=== PATIENT | female | born 1940 | race Caucasian/White ===

== ENCOUNTER → 2017-06-17 | Day surgery (SDC) | payer MEDICARE, BC ==
[~2017-06-17] MED LIST: ADVIL200 M1 PO; ALPRAZOLAM PO; ALPRAZOLAM1 M1 PO; ALPRAZOLAM1 MG PO; ANASTROZOLE1 MG PO; ASPIR-TRIN325 MG PO; B-12 SUBQ; BLOOD PRESSURE MED; CARAFATE1 G PO; CIPRO PO; CLONIDINE PO; EFFER-K 20 MEQ20 MEQ; FLAGYL PO; FLUOXETINE HCL20 M1 PO; FLUOXETINE HCL40 M1 PO; GAVISCON EXTRA; GAVISCON1 TAB PO; HYDROCODON-ACE1 EAC4; HYDROCODON-ACE1 EAC5 PO; IBUPROFEN PO; IBUPROFEN100 MG PO; IBUPROFEN200 M1 PO; K-DUR20 ME1 PO; KLOR-CON PO; LANSOPRAZOLE30 M1 PO; LANSOPRAZOLE30 M2 PO; LASIX PO; LASIX20 MG; LEVAQUIN PO; LIDODERM30 EA TOP; LISINOPRIL20 MG PO; LORATADINE PO; LORTAB 7.5-5001 TAB PO; MAXZIDE 75-501 EACH PO; MAXZIDE 75/50 T1 TA1 PO; MEDI-MECLIZINE25 M1 PO; METHADONE PO; METRONIDAZOLE PO; NEURONTIN300 MG PO; NEXIUM PO; OXYCODON HCL-1 UDTAB PO; OXYCODON HCL-AP1 TA2 PO; OXYCODONE-ACET1 EAC1 PO; OXYCODONE-APAP1 EAC5 PO; OXYCONTIN PO; PAMELOR PO; PERCOCET 10/3251 TAB PO; PERCOCET10 PO; PRAVACHOL PO; PREVACID PO; PREVACID15 M1 PO; PRILOSEC40 MG PO; PRINIVIL20 M1 PO; PROTONIX PO; PROZAC PO; PROZAC40 M1 PO; TOPROL XL 50 MG50 MG PO; TRIAMTERENE-HC1 EACH PO; TRIAMTERENE-HCT1 TA6 PO; VITAMIN B-1000 MCG/1 IJ; VITAMIN D400 UNI1 PO; XANAX0.5 MG PO; XANAX1 MG PO; ZANTAC300 MG PO; [UNRECOGNIZED DRUG - OTHER]
--- NOTE | ~2017-06-17 | OR ---
Unit #: [id number] #: [id number] Patient: NADEGE PINEDA [id number] [address] [place], [place] [address] [id number] O MR#: [id number] NAME: NADEGE PINEDA ROOM: Date of Procedure: 06/17/2017 Admission Date: 06/17/2017 Surgeon: Gary Aguero M.D. : 1940 Attending Physician: Gary Aguero M.D. Primary Care Physician: Darcie Hancock M.D. OPERATIVE REPORT PREOPERATIVE DIAGNOSES Back pain, radiculopathy, post-laminectomy, degenerative disk disease, spondylolisthesis. POSTOPERATIVE DIAGNOSES Back pain, radiculopathy, post-laminectomy, degenerative disk disease, spondylolisthesis. PROCEDURE PERFORMED Lumbar epidural steroid injection with intravenous sedation and fluoroscopic guidance for needle localization. INDICATIONS FOR PROCEDURE The patient is a 77-year-old female with worsening back and bilateral lower extremity as well as flank pain. She has significant multilevel multifactorial degenerative disk disease as well as postsurgical changes. She was treated medically with p.r.n. epidural steroids. Last injections were done a series of two about 6 months ago and she did very well for about 4 to 5 months. Based on history, pathology, symptomatology, and treatment options, we are going to proceed with a repeat epidural steroid injection today. DESCRIPTION OF PROCEDURE The patient was placed in the seated position. Standard monitors were applied. 2 mg of Versed were given for sedation and anxiolysis, which were adequate. Vital signs remained stable. Sterile prep and drape then of the lumbar area was performed. The skin then at the L3-L4 level was localized with 1% lidocaine. An 18-gauge T3 [employer] needle was then advanced via loss of resistance technique and fluoroscopic guidance in toward the epidural space. The patient did not complain of any pain or paresthesia during needle advancement. After confirming proper positioning with fluoroscopy and radiographic contrast, 80 mg of Depo-Medrol and 4 mL of 0.125% bupivacaine were deposited. The patient tolerated the procedure otherwise well and was discharged to the recovery room in stable condition. Dictated by... Fernando Jones/mily TD: 06/17/2017 17:56 JOB #: [id number] Unit #: [id number] #: [id number] Patient: NADEGE PINEDA OPERATIVE REPORT Page 1 of 1 X Gary Aguero MD X PROCEDURE OPERATIVE NOTE
== END | disposition home or self-care (01) ==
LOC: CCSC 11:18
DX: M51.16 Intervertebral disc disorders with radiculopathy, lumbar region (principal); M43.16 Spondylolisthesis, lumbar region; Z88.0 Allergy status to penicillin; Z88.5 Allergy status to narcotic agent; Z88.8 Allergy status to other drugs, medicaments and biological substances; Z91.018 Allergy to other foods; Z79.899 Other long term (current) drug therapy; Z98.890 Other specified postprocedural states
CPT/HCPCS: J1040; J2250